=== PATIENT | female | born 1990 | race Caucasian/White ===

== ENCOUNTER 2022-12-21 12:45 | Outpatient (CLI) | payer BC | END 2022-12-21 12:46 | disposition home or self-care (01) | LOC: SCSMRI 12:45 | PROVIDERS: ATTEND Family Medicine Addiction Medicine | DX: M50.121 Cervical disc disorder at C4-C5 level with radiculopathy (principal); Q05.5 Cervical spina bifida without hydrocephalus | CPT/HCPCS: 72141 ==